=== PATIENT | female | born 1990 | race Caucasian/White ===

== ENCOUNTER 2019-06-04 13:29 | Emergency (ER) | payer OTHER ==
[~2019-06-04] VITALS: Ht 165.1 cm; Wt 98.1 kg
[2019-06-04 13:31] VITALS: BP 135/87
[2019-06-04] MEDS ORDERED: NACL 0.9% 1,000 ML IV ONE (14:15)
[2019-06-04 14:30] LABS: BASOPHILS # (AUTO) 0.1 K/uL (0.00-0.22); BASOPHILS % (AUTO) 0.9 % (0.0-2.0); EOSINOPHILS # (AUTO) 0.2 K/uL (0-0.4); EOSINOPHILS % (AUTO) 2.1 % (0.0-4.0); HEMATOCRIT 39.5 % (36-48); HEMOGLOBIN 13.2 g/dL (12.0-16.0); LYMPHOCYTES # (AUTO) 2.4 K/uL (2.5-16.5); LYMPHOCYTES % (AUTO) 26.5 % (20.5-51.1); MEAN CORPUSCULAR HEMOGLOBIN 30 pg (27-31); MEAN CORPUSCULAR HGB CONC 33 g/dL (33-37); MEAN CORPUSCULAR VOLUME 88.9 fL (80-94); MONOCYTES # (AUTO) 0.4 K/uL (0.8-1.0); MONOCYTES % (AUTO) 4.9 % (1.7-9.3); NEUTROPHILS % (AUTO) 65.6 % (42.2-75.2); PLATELET COUNT (AUTO) 272 K/uL (140-450); RED BLOOD CELL COUNT(AUTO) 4.44 MIL/uL (4.20-5.40); RED CELL DISTRIBUTION WIDTH 13.1 % (11.6-13.7); WHITE BLOOD COUNT (AUTO) 9.2 K/uL (4.8-10.8)
[2019-06-04] MEDS ORDERED: ONDANSETRON 4 MG/2 ML VIAL IVP ONE (14:30)
[2019-06-04 14:44] LABS: ALBUMIN 3.2 g/dL (3.4-5.0); ANION GAP 13.5 (8-16); CARBON DIOXIDE 28.1 mmol/L (21-32); CREATININE 0.6 mg/dL (0.6-1.3); POTASSIUM 3.6 mmol/L (3.5-5.1); TOTAL BILIRUBIN 0.2 mg/dL (0.0-1.0)
[2019-06-04 14:56] LABS: APPEARANCE,URINE CLEAR (CLEAR); BILIRUBIN,URINE NEGATIVE (NEGATIVE); BLOOD, URINE TRACE-I (NEGATIVE); COLOR,URINE YELLOW (YELLOW); LEUKOCYTE ESTERASE ,URINE NEGATIVE (NEGATIVE); NITRITE, URINE NEGATIVE (NEGATIVE); UGLUCOSE 3+ (NEGATIVE)
[2019-06-04 17:52] VITALS: BP 129/76
== END 2019-06-04 17:52 | disposition home or self-care (01) ==
LOC: MED 13:29
DX: O20.0 Threatened abortion (principal); O21.0 Mild hyperemesis gravidarum; E11.9 Type 2 diabetes mellitus without complications; Z90.49 Acquired absence of other specified parts of digestive tract; Z3A.01 Less than 8 weeks gestation of pregnancy
CPT/HCPCS: 36415; 76817; 80053; 81003; 84702; 85025; 86900; 86901; 96361; 96374; 99284; J2405; J7030; Q0092

== ENCOUNTER 2019-09-11 13:15 | Emergency (ER) | payer OTHER, SELFPAY ==
[~2019-09-11] VITALS: Ht 165.1 cm; Wt 99.8 kg
[2019-09-11 13:32] VITALS: BP 124/84
[2019-09-11 13:44] VITALS: BP 105/70
--- NOTE | 2019-09-11 14:18 | NUR ---
COVID SWAB DONE
[2019-09-11 14:25] VITALS: BP 105/70
--- NOTE | 2019-09-11 14:25 | NUR ---
Patient discharged with v/s stable. Written and verbal after care instructions given and explained. Patient alert, oriented and verbalized understanding of instructions. Ambulatory with steady gait. All questions addressed prior to discharge. ID band removed. Patient advised to follow up with PMD. Rx of aithromax given. Patient educated on indication of medication including possible reaction and side effects. Opportunity to ask questions provided and answered.
== END 2019-09-11 14:25 | disposition home or self-care (01) ==
LOC: EEVIPCON 13:15 → MED 13:15 → EDSTATUS 13:15 → MED 14:25
DX: R05 Cough (principal); O24.410 Gestational diabetes mellitus in pregnancy, diet controlled; Z20.828 Contact with and (suspected) exposure to other viral communicable diseases
CPT/HCPCS: 99283; U0003

== ENCOUNTER 2021-01-19 17:21 | Emergency (ER) | payer OTHER, SELFPAY ==
[~2021-01-19] VITALS: Ht 162.6 cm; Wt 91.7 kg
--- NOTE | 2021-01-19 17:31 | NUR ---
PATIENT AMBULATED TO BED 5
[2021-01-19 17:42] VITALS: BP 146/98
[2021-01-19] MEDS: NACL 0.9% 1,000 ML IV ONE (18:24)
--- NOTE | 2021-01-19 18:26 | NUR ---
30 BIB SELF WITH C/O DIARRHEA SINCE SUNDAY. PATIENT STATES SYMPTOMS BEGAN SUNDAY AND HAVE CONTINUED, STATING SHE HAS BEEN HAVING 7/10 ACHING/SHARP ABDOMINAL PAIN THAT WORSENS WHEN SHE EATS. STATES SHE HAS BEEN TAKING TYLENOL FOR THE PAIN WITH NO RELIEF, DENIES N/V. DENIES SOB, CP, FEVER OR CHILLS, STATES NO LOSS OF APPETITE.
[2021-01-19 18:32] LABS: APPEARANCE,URINE CLEAR (CLEAR); BILIRUBIN,URINE NEGATIVE (NEGATIVE); BLOOD, URINE 2+ (NEGATIVE); COLOR,URINE YELLOW (YELLOW); LEUKOCYTE ESTERASE ,URINE NEGATIVE (NEGATIVE); NITRITE, URINE NEGATIVE (NEGATIVE); UGLUCOSE 3+ (NEGATIVE)
[2021-01-19 18:35] LABS: BASOPHILS % (AUTO) 0.5 % (0.0-2.0); EOSINOPHILS # (AUTO) 0.2 K/uL (0-0.4); EOSINOPHILS % (AUTO) 2.8 % (0.0-4.0); HEMATOCRIT 38.7 % (36-48); HEMOGLOBIN 13.6 g/dL (12.0-16.0); LYMPHOCYTES # (AUTO) 3.4 K/uL (2.5-16.5); LYMPHOCYTES % (AUTO) 43.9 % (20.5-51.1); MEAN CORPUSCULAR HEMOGLOBIN 31 pg (27-31); MEAN CORPUSCULAR HGB CONC 35 g/dL (33-37); MEAN CORPUSCULAR VOLUME 87.1 fL (80-94); MONOCYTES # (AUTO) 0.3 K/uL (0.8-1.0); MONOCYTES % (AUTO) 4.1 % (1.7-9.3); NEUTROPHILS # (AUTO) 3.8 K/uL (1.8-7.7); NEUTROPHILS % (AUTO) 48.7 % (42.2-75.2); PLATELET COUNT (AUTO) 235 K/uL (140-450); RED BLOOD CELL COUNT(AUTO) 4.45 MIL/uL (4.20-5.40); RED CELL DISTRIBUTION WIDTH 12.8 % (11.6-13.7); WHITE BLOOD COUNT (AUTO) 7.8 K/uL (4.8-10.8)
[2021-01-19] MEDS: MORPHINE SULFATE 2 MG/ML SYR IVP ONE (18:39)
[2021-01-19] MEDS: ONDANSETRON 4 MG/2 ML VIAL IVP ONE (18:39)
[2021-01-19 18:42] LABS: RBC,URINE 11-20 (MOD) /HPF (0-5); WBC,URINE 0-5 /HPF (0-5)
[2021-01-19 18:52] LABS: ANION GAP 3.9 (8-16); CARBON DIOXIDE 37.8 mmol/L (21-32); CREATININE 0.9 mg/dL (0.6-1.3); POTASSIUM 3.7 mmol/L (3.5-5.1); TOTAL BILIRUBIN -0.4 mg/dL (0.0-1.0)
--- NOTE | 2021-01-19 19:17 | NUR ---
Pt report given to SANTOSH Richmond RN. Transfer of care at this time.
--- NOTE | 2021-01-19 19:20 | NUR ---
RECEIVED REPORT FROM DAY SHIFT NURSE, ASSUMED CARE. PATIENT OBSERVED IN BED RESTING COMFORTABLY. DENIED ANY PAIN, NAUSEA, VOMITING AT THE MOMENT. NO ACUTE DISTRESS NOTED. WILL CONTINUE TO MONITOR.
[2021-01-19] MEDS ORDERED: BISM262C52 PO (19:43)
[2021-01-19] MEDS ORDERED: LOPE-289 PO (19:43)
[2021-01-19 20:00] VITALS: BP 122/89
[2021-01-20 08:07] LABS: HEPATITIS A ANTIBODY IGM Negative (Negative); HEPATITIS B CORE AB TOTAL Negative (Negative); HEPATITIS B SURFACE ANTIBODY Non Reactive (.); HEPATITIS B SURFACE ANTIGEN Negative (Negative)
== END 2021-01-19 20:00 | disposition home or self-care (01) ==
LOC: MED 17:21
DX: B17.9 Acute viral hepatitis, unspecified (principal); K52.9 Noninfective gastroenteritis and colitis, unspecified; E11.9 Type 2 diabetes mellitus without complications; Z79.899 Other long term (current) drug therapy
CPT/HCPCS: 36415; 80053; 81001; 81025; 85025; 86704; 86706; 86708; 86709; 86803; 87340; 96361; 96374; 96375; 99284; J2270; J2405; J7030

== ENCOUNTER 2021-09-06 14:50 | Emergency (ER) | payer OTHER ==
[~2021-09-06] VITALS: Ht 162.6 cm; Wt 90.3 kg
[~2021-09-06 14:50] MED LIST: BISM262C52 PO; LOPE-289 PO
--- NOTE | 2021-09-06 15:07 | NUR ---
called in lobby and outside chairs, no answer
[2021-09-06 15:08] VITALS: BP 160/101
[2021-09-06] MEDS ORDERED: NACL 0.9% 1,000 ML IV ONE ×3 (15:30→18:00)
[2021-09-06 17:11] LABS: BASOPHILS # (AUTO) 0.1 K/uL (0.00-0.22); BASOPHILS % (AUTO) 0.9 % (0.0-2.0); EOSINOPHILS # (AUTO) 0.1 K/uL (0-0.4); EOSINOPHILS % (AUTO) 1.1 % (0.0-4.0); HEMATOCRIT 41.4 % (36-48); HEMOGLOBIN 14.5 g/dL (12.0-16.0); LYMPHOCYTES # (AUTO) 1.5 K/uL (2.5-16.5); LYMPHOCYTES % (AUTO) 16.7 % (20.5-51.1); MEAN CORPUSCULAR HEMOGLOBIN 31 pg (27-31); MEAN CORPUSCULAR HGB CONC 35 g/dL (33-37); MONOCYTES # (AUTO) 0.4 K/uL (0.8-1.0); NEUTROPHILS # (AUTO) 6.7 K/uL (1.8-7.7); NEUTROPHILS % (AUTO) 76.3 % (42.2-75.2); PLATELET COUNT (AUTO) 226 K/uL (140-450); RED BLOOD CELL COUNT(AUTO) 4.76 MIL/uL (4.20-5.40); RED CELL DISTRIBUTION WIDTH 12.7 % (11.6-13.7); WHITE BLOOD COUNT (AUTO) 8.8 K/uL (4.8-10.8)
[2021-09-06] MEDS ORDERED: INSULIN REGULAR, HUMAN 100 UNIT/ML VIAL SUBQ ONE (18:05)
--- NOTE | 2021-09-06 18:30 | NUR ---
PT AMBULATED TO ER BED 12
[2021-09-06] MEDS ORDERED: KETOROLAC 30 MG/ML VIAL IVP ONE (19:00)
--- NOTE | 2021-09-06 19:13 | NUR ---
31 Y/O FEMALE C/O LOWER BACK PAIN THAT COMES AND GOES AND RADIATES TO SPINE AND ABDOMEN (RLQ) ABD SOFT, FLAT, AND TENDER ON PALPATION. PAIN BEGAN THIS MORNING AT 0300. PT REPORTS TAKING IBUPROFEN WITH LITTLE TO NO RELIEF. PAIN DESCRIBED "PINCHING AND SIMILAR TO CONTRACTIONS". C/O DYSURIA, HEMATURA, URINARY DRIBBLING AND URGENCY. 1 EPISODE OF DIARRHEA THIS MORNING AT 0400. REPORTS UTI SYMPTOMS BEGINNING 3 DAYS AGO. PT IN GOWN. RESPIRATIONS EVEN AND UNLABORED. PMH: TYPE 2 DM MEDS: METFORMIN AND GLIPIZE COMPLIANT TOOK THIS MORNING AT 0730
--- NOTE | 2021-09-06 19:13 | NUR ---
report received from adam mora and adam palma. continuity of pt care at this time.
--- NOTE | 2021-09-06 19:14 | NUR ---
Report given MITCHEL Kiran. Transfer of care at this time.
--- NOTE | 2021-09-06 19:38 | NUR ---
Pt laying in bed locked in lowest position w x2 siderails up for pt safety. pt crying reports IV site hurts and back pain 10/10, +feeling like she is having a panic attack w chest feeling heavy, sob, and light headed. ERMD made aware of pt status. IV site removed, NS boluses paused. Pt tachycardic, otherwise vs w/in normal limits. pt connected to monitor, will continue to monitor.
--- NOTE | 2021-09-06 19:48 | NUR ---
new iv placed, bolus NS continued.
--- NOTE | 2021-09-06 19:51 | NUR ---
pt bs 291, per renetta Millard to hold off on humulin R administration. medication held.
[2021-09-06] MEDS ORDERED: LORazepam 2 MG/ML VIAL IVP ONE (19:55)
--- NOTE | 2021-09-06 19:58 | NUR ---
ativan 2mg vial pulled, 1mg admin 0.5ml wasted.
--- NOTE | 2021-09-06 20:04 | NUR ---
pt recently medicated for pain, and anxiety. 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 denies nausea. will continue to monitor.
[2021-09-06 20:16] LABS: APPEARANCE,URINE SL CLOUDY (CLEAR); BILIRUBIN,URINE NEGATIVE (NEGATIVE); BLOOD, URINE 3+ (NEGATIVE); COLOR,URINE AMBER (YELLOW); LEUKOCYTE ESTERASE ,URINE 1+ (NEGATIVE); NITRITE, URINE NEGATIVE (NEGATIVE); UGLUCOSE 3+ (NEGATIVE)
[2021-09-06 20:37] LABS: OTHER CASTS, URINE None Seen /LPF (None Seen); WBC,URINE 0-5 /HPF (0-5)
[2021-09-06] MEDS ORDERED: ACET-8386 PO (21:37)
[2021-09-06] MEDS ORDERED: CEPH-588 PO (21:37)
[2021-09-06] MEDS ORDERED: NAPR-54 PO (21:37)
[2021-09-06] MEDS ORDERED: cefTRIAXone 1,000 MG VIAL ONE (22:07)
--- NOTE | 2021-09-06 22:18 | NUR ---
Pt reports feeling better no ongoing diziness, anxiety, chest discomfort, or sob. pt reports back pain 09/11, requesting pain meduication. ermd made aware.
[2021-09-06 23:04] VITALS: BP 130/84
--- NOTE | 2021-09-06 23:04 | NUR ---
Patient discharged with v/s stable. Written and verbal after care instructions given and explained. Patient alert, oriented and verbalized understanding of instructions. Ambulatory with steady gait. All questions addressed prior to discharge. ID band removed. Patient advised to follow up with PMD. Rx of norco, keflex, naproxen given. Patient educated on indication of medication including possible reaction and side effects. Opportunity to ask questions provided and answered.
--- NOTE | 2021-09-09 18:58 | NUR ---
LATE ENTRY. RECEIVED POSITIVE URINE CULTURE. DISCREPANCY LOG SIGNED BY DR TATE. TREATMENT APPROPRIATE. FORM PLACED IN BINDER.
== END 2021-09-06 23:04 | disposition home or self-care (01) ==
LOC: MED 14:50
DX: E11.65 Type 2 diabetes mellitus with hyperglycemia (principal); R10.9 Unspecified abdominal pain; R30.0 Dysuria; R31.9 Hematuria, unspecified; Z79.4 Long term (current) use of insulin; Z79.899 Other long term (current) drug therapy
CPT/HCPCS: 36415; 74176; 81001; 81025; 85025; 87086; 88304; 93005; 96361; 96365; 96375; 99285; J0696; J1815; J1885; J2060

== ENCOUNTER 2022-03-18 11:52 | Emergency (ER) | payer MEDICAID, OTHER ==
[~2022-03-18] VITALS: Ht 162.6 cm; Wt 89.8 kg
[~2022-03-18 11:52] MED LIST changes: +ACET-8905 PO; +CEPH-588 PO; +NAPR-54 PO
[2022-03-18 12:32] VITALS: BP 151/97
--- NOTE | 2022-03-18 12:37 | NUR ---
FLU AND ELLY SWABS COLLECTED
--- NOTE | 2022-03-18 13:00 | NUR ---
31 Y/O FEMALE BIB SELF C/O HEADACHE, COUGH, SORE THROAT X3DAYS. STATES THAT SHE'S BEEN TAKING OTC MEDS W/O RELIEF. DENIES ANY CP, SOB NKA
[2022-03-18] MEDS ORDERED: IBUP-1842 PO (13:27)
[2022-03-18] MEDS ORDERED: BROM118S3 PO (13:27)
[2022-03-18 13:58] VITALS: BP 151/97
--- NOTE | 2022-03-18 13:59 | NUR ---
Patient discharged with v/s stable. Written and verbal after care instructions ABOUT UPPER RESPIRATORY INFECTION given and explained. Patient alert, oriented and verbalized understanding of instructions. Ambulatory with steady gait. All questions addressed prior to discharge. ID band removed. Patient advised to follow up with PMD. Rx of BROMFED, MOTRIN given. Patient educated on indication of medication including possible reaction and side effects. Opportunity to ask questions provided and answered.
== END 2022-03-18 13:59 | disposition home or self-care (01) ==
LOC: MED 11:52
DX: J06.9 Acute upper respiratory infection, unspecified (principal); Z20.822 Contact with and (suspected) exposure to COVID-19; H92.03 Otalgia, bilateral; E11.9 Type 2 diabetes mellitus without complications; Z79.4 Long term (current) use of insulin; Z79.899 Other long term (current) drug therapy; Z90.49 Acquired absence of other specified parts of digestive tract
CPT/HCPCS: 99283

== ENCOUNTER 2022-04-09 17:26 | Emergency (ER) | payer MEDICAID ==
[~2022-04-09] VITALS: Ht 162.6 cm; Wt 90.3 kg
[~2022-04-09 17:26] MED LIST changes: +BROM118S3 PO; +IBUP-1842 PO
[2022-04-09 17:59] VITALS: BP 204/137
--- NOTE | 2022-04-09 18:00 | NUR ---
31 y/o female bib self, c/o chest pain radiates to back, worsens with cough exertion for 1 week. states she was seen here 03/18/22 and tested negative for covid. states she was positive with covid 2 weeks ago. bs in triage was 552. a&ox4, ambulates with steady gait. pmh: dm2 nka
--- NOTE | 2022-04-09 18:09 | NUR ---
PT W/C ASSISTED TO BED 3.
[2022-04-09] MEDS ORDERED: KETOROLAC 15 MG/ML VIAL IVP ONE (18:20)
[2022-04-09] MEDS ORDERED: NACL 0.9% 1,000 ML IV ONE ×2 (18:20)
[2022-04-09 18:34] LABS: BASOPHILS % (AUTO) 0.4 % (0.0-2.0); EOSINOPHILS # (AUTO) 0.2 K/uL (0-0.4); EOSINOPHILS % (AUTO) 1.7 % (0.0-4.0); HEMATOCRIT 41.3 % (36-48); HEMOGLOBIN 19.1 g/dL (12.0-16.0); LYMPHOCYTES # (AUTO) 2.8 K/uL (2.5-16.5); LYMPHOCYTES % (AUTO) 27.2 % (20.5-51.1); MEAN CORPUSCULAR HEMOGLOBIN 41 pg (27-31); MEAN CORPUSCULAR HGB CONC 46 g/dL (33-37); MEAN CORPUSCULAR VOLUME 87.7 fL (80-94); MONOCYTES # (AUTO) 0.5 K/uL (0.8-1.0); MONOCYTES % (AUTO) 4.8 % (1.7-9.3); NEUTROPHILS # (AUTO) 6.7 K/uL (1.8-7.7); NEUTROPHILS % (AUTO) 65.9 % (42.2-75.2); PLATELET COUNT (AUTO) 242 K/uL (140-450); RED BLOOD CELL COUNT(AUTO) 4.71 MIL/uL (4.20-5.40); RED CELL DISTRIBUTION WIDTH 12.7 % (11.6-13.7); WHITE BLOOD COUNT (AUTO) 10.2 K/uL (4.8-10.8)
[2022-04-09 19:03] LABS: ACETONE, SERUM NEGATIVE (NEGATIVE)
[2022-04-09] MEDS ORDERED: KETOROLAC 15 MG/ML VIAL ONE (19:30)
[2022-04-09 19:50] LABS: APPEARANCE,URINE CLEAR (CLEAR); BILIRUBIN,URINE NEGATIVE (NEGATIVE); BLOOD, URINE TRACE-I (NEGATIVE); COLOR,URINE YELLOW (YELLOW); LEUKOCYTE ESTERASE ,URINE NEGATIVE (NEGATIVE); NITRITE, URINE NEGATIVE (NEGATIVE); UGLUCOSE >=1000 (NEGATIVE)
[2022-04-09 20:09] LABS: RBC,URINE 0-5 /HPF (0-5); WBC,URINE NONE SEEN /HPF (0-5)
--- NOTE | 2022-04-09 20:36 | NUR ---
PT BLOOD SUGAR IS 386
--- NOTE | 2022-04-09 21:00 | NUR ---
pt looks worried and anxious, she is concerned that her family member becuse of blood clot. I notifed the
[2022-04-09] MEDS ORDERED: LORazepam 0.5 MG TAB PO ONE (21:10)
--- NOTE | 2022-04-09 22:00 | NUR ---
Dr. conley came and talked to the patient to ensure patient know when she getting the the blood result.
--- NOTE | 2022-04-09 23:00 | NUR ---
PT IS COMPLAINING ABOUT THE PAIN IN CENTER OF THE STOMACH AND BACK PAIN. I HAVE NOTIFIED THE
[2022-04-10] MEDS ORDERED: DICYCLOMINE HCL LIQUID 20 MG, ALUMINUM HYD/MAG/SIMETHICONE 30 ML, LIDOCAINE VISCOUS 2% ... PO ONE ×3 (00:10)
[2022-04-10] MEDS ORDERED: DICYCLOMINE HCL LIQUID 10 MG/5 ML UDC ONE (00:28)
[2022-04-10] MEDS ORDERED: ALUMINUM HYD/MAG/SIMETHICONE 30 ML UDC ONE (00:28)
--- NOTE | 2022-04-10 02:23 | NUR ---
PT WANTED TO LEAVE
[2022-04-10 02:29] VITALS: BP 150/95
--- NOTE | 2022-04-10 02:31 | NUR ---
Patient does not wish to proceed with medical care recommended by ARMANI VERDUZCO. Patient given information related to possible complications, up to and including , which could occur as a result of leaving hospital at this time. Patient verbalizes understanding of risks involved leaving against medical advice. Patient has REFUSED TO SIGN AMA FORM. PT LEFT WITH HER BELONGING.
--- NOTE | 2022-04-11 08:17 | NUR ---
LATE ENTRY -- CONFIRMED WITH NURSE 2 NS INFUSIONS BOTH COMPLETED AT [facility] 04/09/22
[2022-04-11 15:30] LABS: POTASSIUM 3.6 mmol/L (3.5-5.1)
[2022-04-11 15:31] LABS: ANION GAP 32.6 (8-16)
[2022-04-11 15:35] LABS: CREATININE 0.7 mg/dL (0.6-1.3); TOTAL BILIRUBIN 0.2 mg/dL (0.0-1.0)
[2022-04-11 15:36] LABS: ALBUMIN 3.9 g/dL (3.4-5.0)
== END 2022-04-10 02:16 | disposition left against medical advice (07) ==
LOC: MED 17:26
DX: B34.9 Viral infection, unspecified (principal); E11.65 Type 2 diabetes mellitus with hyperglycemia; R10.13 Epigastric pain; Z20.822 Contact with and (suspected) exposure to COVID-19; Z90.49 Acquired absence of other specified parts of digestive tract; Z98.890 Other specified postprocedural states; Z79.899 Other long term (current) drug therapy; Z79.1 Long term (current) use of non-steroidal anti-inflammatories (NSAID); Z79.891 Long term (current) use of opiate analgesic; Z79.2 Long term (current) use of antibiotics
CPT/HCPCS: 36415; 71045; 80053; 81001; 81025; 82009; 83690; 84484; 85025; 87426; 87804; 93005; 96361; 96374; 99285; J1885; J7030; Q0092

== ENCOUNTER 2022-04-10 04:24 | Inpatient (IN) | payer MEDICAID ==
[~2022-04-10] VITALS: Ht 162.6 cm; Wt 90.3 kg
[2022-04-10 04:33] VITALS: BP 150/90
[2022-04-10] MEDS ORDERED: FAMOTIDINE 20 MG/2 ML VIAL IVP ONE (05:40)
[2022-04-10] MEDS ORDERED: NACL 0.9% 1,000 ML IV ONE (05:40)
[2022-04-10] MEDS ORDERED: ONDANSETRON 4 MG/2 ML VIAL IVP ONE (05:40)
[2022-04-10] MEDS ORDERED: MORPHINE SULFATE 4 MG/ML SYR IVP ONE (05:40)
[2022-04-10 06:27] LABS: BASOPHILS # (AUTO) 0.1 K/uL (0.00-0.22); BASOPHILS % (AUTO) 0.7 % (0.0-2.0); EOSINOPHILS # (AUTO) 0.1 K/uL (0-0.4); EOSINOPHILS % (AUTO) 1.1 % (0.0-4.0); LYMPHOCYTES # (AUTO) 2.3 K/uL (2.5-16.5); LYMPHOCYTES % (AUTO) 20.2 % (20.5-51.1); MONOCYTES # (AUTO) 0.5 K/uL (0.8-1.0); MONOCYTES % (AUTO) 4.8 % (1.7-9.3); NEUTROPHILS # (AUTO) 8.5 K/uL (1.8-7.7); NEUTROPHILS % (AUTO) 73.2 % (42.2-75.2); PLATELET COUNT (AUTO) 241 K/uL (140-450); RED CELL DISTRIBUTION WIDTH 12.8 % (11.6-13.7); WHITE BLOOD COUNT (AUTO) 11.6 K/uL (4.8-10.8)
[2022-04-10 09:49] LABS: APPEARANCE,URINE CLEAR (CLEAR); BILIRUBIN,URINE NEGATIVE (NEGATIVE); BLOOD, URINE LARGE (NEGATIVE); COLOR,URINE YELLOW (YELLOW); LEUKOCYTE ESTERASE ,URINE NEGATIVE (NEGATIVE); NITRITE, URINE NEGATIVE (NEGATIVE); UGLUCOSE >=1000 (NEGATIVE)
[2022-04-10 10:14] LABS: OTHER CASTS, URINE None Seen /LPF (None Seen); WBC,URINE 0-5 /HPF (0-5)
[2022-04-10 10:41] LABS: RED BLOOD CELL COUNT(AUTO) 5.04 MIL/uL (4.20-5.40)
[2022-04-10 10:42] LABS: HEMOGLOBIN 15.8 g/dL (12.0-16.0)
[2022-04-10 10:43] LABS: HEMATOCRIT 44.4 % (36-48); MEAN CORPUSCULAR VOLUME 88.2 fL (80-94)
[2022-04-10 10:44] LABS: MEAN CORPUSCULAR HEMOGLOBIN 31 pg (27-31)
[2022-04-10 10:45] LABS: MEAN CORPUSCULAR HGB CONC 36 g/dL (33-37)
[2022-04-10] MEDS ORDERED: cefTRIAXone 2,000 MG in DEXTROSE 5% 100 ML IV ONE (11:05)
[2022-04-10] MEDS ORDERED: cefTRIAXone 2,000 MG VIAL ONE (11:08)
[2022-04-10] MEDS ORDERED: DEXT 5% /NACL 0.9% 1,000 ML IV SCH (11:10)
[2022-04-10] MEDS ORDERED: DEXTROSE 50% 50 ML SYR IVP PRN (11:30)
[2022-04-10] MEDS: BLOOD GLUCOSE MONITORING 1 DEV DEV FS SCH ×3 (12:04→20:56)
[2022-04-10] MEDS: INSULIN LISPRO SLIDING SCALE 100 UNITS/ML VIAL SUBQ PRN ×3 (12:13→21:00)
[2022-04-10] MEDS ORDERED: LORazepam 2 MG/ML VIAL IVP PRN (12:20)
[2022-04-10] MEDS ORDERED: ZOLPIDEM 10 MG TAB PO PRN (12:20)
[2022-04-10] MEDS ORDERED: MAG SULF 2000 MG/WATER PREMIX 50 ML IV PRN (12:20)
[2022-04-10] MEDS ORDERED: DOCUSATE SODIUM 100 MG GELCAP PO PRN (12:20)
[2022-04-10] MEDS ORDERED: POTASSIUM CHLORIDE 10 MEQ TABER PO PRN (12:20)
[2022-04-10] MEDS: NACL 0.9% 1,000 ML IV SCH (14:24)
[2022-04-10 16:00] VITALS: BP 126/83
[2022-04-10] MEDS: METOCLOPRAMIDE 10 MG/2 ML INJ VIAL IVP SCH (16:48)
[2022-04-10] MEDS: gemfibroziL 600 MG TAB PO SCH (17:12)
[2022-04-10] MEDS: ACETAMINOPHEN 325 MG TAB PO PRN ×2 (17:13→20:42)
[2022-04-10 18:18] LABS: BARBITURATE, URINE NEGATIVE ng/ml (NEG <=200); BENZODIAZEPINE, URINE POSITIVE ng/mL (NEG <=200); CANNABINOID, URINE NEGATIVE ng/mL (NEG <=50); COCAINE, URINE NEGATIVE ng/mL (NEG <=300); OPIATE, URINE POSITIVE ng/mL (NEG <=2000); PHENCYCLIDINE SCREEN,URINE NEGATIVE ng/mL (NEG <=25)
[2022-04-10 20:00] VITALS: BP 123/81
[2022-04-11] VITALS: BP 106/64
[2022-04-11] MEDS: NACL 0.9% 1,000 ML IV SCH ×5 (00:15→20:48)
[2022-04-11 04:00] VITALS: BP 119/74
[2022-04-11] MEDS: ONDANSETRON 4 MG/2 ML VIAL IVP PRN ×2 (04:06→20:58)
[2022-04-11] MEDS: MORPHINE SULFATE 2 MG/ML SYR IVP PRN ×4 (04:13→20:58)
[2022-04-11 06:03] LABS: BASOPHILS % (AUTO) 0.4 % (0.0-2.0); EOSINOPHILS # (AUTO) 0.1 K/uL (0-0.4); EOSINOPHILS % (AUTO) 0.6 % (0.0-4.0); HEMATOCRIT 38.7 % (36-48); HEMOGLOBIN 13.4 g/dL (12.0-16.0); LYMPHOCYTES # (AUTO) 2.4 K/uL (2.5-16.5); MEAN CORPUSCULAR HEMOGLOBIN 31 pg (27-31); MEAN CORPUSCULAR HGB CONC 35 g/dL (33-37); MEAN CORPUSCULAR VOLUME 88.3 fL (80-94); MONOCYTES # (AUTO) 0.4 K/uL (0.8-1.0); MONOCYTES % (AUTO) 3.8 % (1.7-9.3); NEUTROPHILS # (AUTO) 8.6 K/uL (1.8-7.7); NEUTROPHILS % (AUTO) 74.2 % (42.2-75.2); PLATELET COUNT (AUTO) 220 K/uL (140-450); RED BLOOD CELL COUNT(AUTO) 4.38 MIL/uL (4.20-5.40); WHITE BLOOD COUNT (AUTO) 11.7 K/uL (4.8-10.8)
[2022-04-11 06:30] LABS: ANION GAP 18.4 (8-16); CARBON DIOXIDE 18.1 mmol/L (21-32); CREATININE 0.5 mg/dL (0.6-1.3); POTASSIUM 3.5 mmol/L (3.5-5.1)
[2022-04-11] MEDS: BLOOD GLUCOSE MONITORING 1 DEV DEV FS SCH ×4 (06:53→20:47)
[2022-04-11] MEDS: INSULIN LISPRO SLIDING SCALE 100 UNITS/ML VIAL SUBQ PRN ×4 (06:55→20:56)
[2022-04-11] MEDS: gemfibroziL 600 MG TAB PO SCH ×2 (06:57→17:18)
[2022-04-11 08:00] VITALS: BP 118/64
[2022-04-11] MEDS: METOCLOPRAMIDE 10 MG/2 ML INJ VIAL IVP SCH ×3 (08:52→17:18)
[2022-04-11 09:28] LABS: CHOL/HDL RATIO 5.5 (1-4.5); HDL CHOLESTEROL 55 mg/dL (40-60); TRIGLYCERIDES 991 mg/dL (30-150)
[2022-04-11 12:00] VITALS: BP 126/83
[2022-04-11] MEDS ORDERED: INSULIN LANTUS 100 UNITS/ML 10 ML VIAL SUBQ SCH (12:56)
[2022-04-11] MEDS: ACETAMINOPHEN 325 MG TAB PO PRN (20:57)
[2022-04-12] VITALS: BP 116/68
[2022-04-12] MEDS: NACL 0.9% 1,000 ML IV SCH ×3 (04:16→20:29)
[2022-04-12 06:00] LABS: BASOPHILS % (AUTO) 0.3 % (0.0-2.0); EOSINOPHILS # (AUTO) 0.2 K/uL (0-0.4); EOSINOPHILS % (AUTO) 1.7 % (0.0-4.0); HEMOGLOBIN 12.6 g/dL (12.0-16.0); LYMPHOCYTES # (AUTO) 1.1 K/uL (2.5-16.5); LYMPHOCYTES % (AUTO) 11.9 % (20.5-51.1); MEAN CORPUSCULAR HEMOGLOBIN 30 pg (27-31); MEAN CORPUSCULAR HGB CONC 34 g/dL (33-37); MEAN CORPUSCULAR VOLUME 88.5 fL (80-94); MONOCYTES # (AUTO) 0.5 K/uL (0.8-1.0); MONOCYTES % (AUTO) 5.6 % (1.7-9.3); NEUTROPHILS # (AUTO) 7.5 K/uL (1.8-7.7); NEUTROPHILS % (AUTO) 80.5 % (42.2-75.2); PLATELET COUNT (AUTO) 175 K/uL (140-450); RED BLOOD CELL COUNT(AUTO) 4.19 MIL/uL (4.20-5.40); RED CELL DISTRIBUTION WIDTH 13.5 % (11.6-13.7); WHITE BLOOD COUNT (AUTO) 9.3 K/uL (4.8-10.8)
[2022-04-12 06:09] LABS: ANION GAP 17.8 (8-16); CARBON DIOXIDE 16.7 mmol/L (21-32); CREATININE 0.4 mg/dL (0.6-1.3); POTASSIUM 3.5 mmol/L (3.5-5.1)
[2022-04-12] MEDS: gemfibroziL 600 MG TAB PO SCH ×2 (06:43→17:31)
[2022-04-12] MEDS: INSULIN LISPRO SLIDING SCALE 100 UNITS/ML VIAL SUBQ PRN ×4 (06:43→21:45)
[2022-04-12] MEDS: BLOOD GLUCOSE MONITORING 1 DEV DEV FS SCH ×4 (07:30→21:52)
[2022-04-12 08:00] VITALS: BP 104/68
[2022-04-12] MEDS: METOCLOPRAMIDE 10 MG/2 ML INJ VIAL IVP SCH ×3 (09:00→17:50)
[2022-04-12] MEDS ORDERED: INSULIN LANTUS 100 UNITS/ML 10 ML VIAL SUBQ SCH (09:00)
[2022-04-12 16:00] VITALS: BP 115/74
[2022-04-12] MEDS: GLIMEPIRIDE 2 MG TAB PO SCH (21:28)
[2022-04-12] MEDS: SODIUM BICARBONATE 8.4% PFS 50 MEQ/50 ML SYR IVP SCH (21:53)
[2022-04-13] VITALS: BP 110/68
[2022-04-13] MEDS ORDERED: guaiFENesin DM 200/20 MG-10 ML 10 ML UDC PO PRN (00:30)
[2022-04-13] MEDS: NACL 0.9% 1,000 ML IV SCH ×2 (03:09→09:49)
[2022-04-13 05:41] LABS: BASOPHILS % (AUTO) 0.5 % (0.0-2.0); EOSINOPHILS # (AUTO) 0.2 K/uL (0-0.4); EOSINOPHILS % (AUTO) 3.3 % (0.0-4.0); HEMATOCRIT 33.7 % (36-48); HEMOGLOBIN 11.3 g/dL (12.0-16.0); LYMPHOCYTES # (AUTO) 2.4 K/uL (2.5-16.5); LYMPHOCYTES % (AUTO) 34.8 % (20.5-51.1); MEAN CORPUSCULAR HEMOGLOBIN 30 pg (27-31); MEAN CORPUSCULAR HGB CONC 34 g/dL (33-37); MEAN CORPUSCULAR VOLUME 88.6 fL (80-94); MONOCYTES # (AUTO) 0.4 K/uL (0.8-1.0); MONOCYTES % (AUTO) 5.3 % (1.7-9.3); NEUTROPHILS # (AUTO) 3.8 K/uL (1.8-7.7); NEUTROPHILS % (AUTO) 56.1 % (42.2-75.2); PLATELET COUNT (AUTO) 148 K/uL (140-450); RED BLOOD CELL COUNT(AUTO) 3.81 MIL/uL (4.20-5.40); RED CELL DISTRIBUTION WIDTH 13.6 % (11.6-13.7); WHITE BLOOD COUNT (AUTO) 6.8 K/uL (4.8-10.8)
[2022-04-13 06:29] LABS: CARBON DIOXIDE 22.1 mmol/L (21-32); CREATININE 0.4 mg/dL (0.6-1.3); POTASSIUM 3.1 mmol/L (3.5-5.1)
[2022-04-13] MEDS: BLOOD GLUCOSE MONITORING 1 DEV DEV FS SCH ×2 (06:35→12:14)
[2022-04-13] MEDS: INSULIN LISPRO SLIDING SCALE 100 UNITS/ML VIAL SUBQ PRN ×2 (06:35→12:15)
[2022-04-13 06:37] LABS: CHOL/HDL RATIO 6.9 (1-4.5)
[2022-04-13] MEDS: gemfibroziL 600 MG TAB PO SCH (06:45)
[2022-04-13 08:00] VITALS: BP 103/72
[2022-04-13] MEDS ORDERED: INSULIN LANTUS 100 UNITS/ML 10 ML VIAL SUBQ SCH (09:00)
[2022-04-13] MEDS: ACETAMINOPHEN 325 MG TAB PO PRN ×2 (09:22)
[2022-04-13] MEDS: GLIMEPIRIDE 2 MG TAB PO SCH (09:25)
[2022-04-13] MEDS: SODIUM BICARBONATE 8.4% PFS 50 MEQ/50 ML SYR IVP SCH (09:49)
[2022-04-13] MEDS: METOCLOPRAMIDE 10 MG/2 ML INJ VIAL IVP SCH (09:49)
[2022-04-13] MEDS ORDERED: POTASSIUM CHL 20 MEQ/ 1/2 NS 1,000 ML IV SCH (11:15)
[2022-04-13] MEDS ORDERED: POTASSIUM CHLORIDE 20% 40 MEQ/15 ML UDC GT SCH (11:25)
[2022-04-13] MEDS ORDERED: GLIM2TAB PO (11:57)
[2022-04-13] MEDS ORDERED: GEMF-65 PO (11:57)
[2022-04-13] MEDS ORDERED: LANTUS SUBQ (11:57)
[2022-04-14] MEDS ORDERED: INSULIN LANTUS 100 UNITS/ML 10 ML VIAL SUBQ SCH (09:00)
== END 2022-04-13 13:51 | disposition home or self-care (01) | DRG 282 ==
LOC: MED 04:24 → MTU 11:12 → MMU 12:15
PROVIDERS: ADMIT Family Medicine; ATTEND Family Medicine
DX: K85.80 Other acute pancreatitis without necrosis or infection (principal); J96.00 Acute respiratory failure, unspecified whether with hypoxia or hypercapnia; R65.11 Systemic inflammatory response syndrome (SIRS) of non-infectious origin with acute organ dysfunction; E87.20 Acidosis, unspecified; N39.0 Urinary tract infection, site not specified; E78.00 Pure hypercholesterolemia, unspecified; E78.1 Pure hyperglyceridemia; E11.65 Type 2 diabetes mellitus with hyperglycemia; E66.9 Obesity, unspecified; Z20.822 Contact with and (suspected) exposure to COVID-19; K59.00 Constipation, unspecified; N20.0 Calculus of kidney; Z68.34 Body mass index [BMI] 34.0-34.9, adult; Y92.89 Other specified places as the place of occurrence of the external cause
CPT/HCPCS: 36415; 71045; 80048; 80053; 80305; 81001; 82550; 82803; 82948; 83605; 83690; 83735; 84478; 84484; 85025; 87040; 87070; 87081; 87086; 93005; 96361; 96365; 96375; 99285; J0696; J1815; J2060; J2270; J2405; J2765; J3475; J3490; J7060; Q0092

== ENCOUNTER 2022-05-07 13:35 | Emergency (ER) | payer MEDICAID ==
[~2022-05-07] VITALS: Ht 162.6 cm; Wt 88.5 kg
[~2022-05-07 13:35] MED LIST changes: +GEMF-65 PO; +GLIM2TAB PO; +LANTUS SUBQ
[2022-05-07 13:42] VITALS: BP 117/74
[2022-05-07] MEDS ORDERED: ONDANSETRON 4 MG/2 ML VIAL IVP ONE (14:25)
[2022-05-07] MEDS ORDERED: NACL 0.9% 1,000 ML IV ONE (14:25)
[2022-05-07] MEDS ORDERED: MORPHINE SULFATE 4 MG/ML SYR IVP ONE (14:25)
[2022-05-07 14:46] LABS: BASOPHILS % (AUTO) 0.2 % (0.0-2.0); EOSINOPHILS # (AUTO) 0.4 K/uL (0-0.4); HEMATOCRIT 40.9 % (36-48); HEMOGLOBIN 13.7 g/dL (12.0-16.0); LYMPHOCYTES # (AUTO) 2.5 K/uL (2.5-16.5); LYMPHOCYTES % (AUTO) 32.6 % (20.5-51.1); MEAN CORPUSCULAR HEMOGLOBIN 30 pg (27-31); MEAN CORPUSCULAR HGB CONC 34 g/dL (33-37); MEAN CORPUSCULAR VOLUME 87.6 fL (80-94); MONOCYTES # (AUTO) 0.3 K/uL (0.8-1.0); MONOCYTES % (AUTO) 4.4 % (1.7-9.3); NEUTROPHILS # (AUTO) 4.5 K/uL (1.8-7.7); NEUTROPHILS % (AUTO) 57.8 % (42.2-75.2); PLATELET COUNT (AUTO) 271 K/uL (140-450); RED BLOOD CELL COUNT(AUTO) 4.67 MIL/uL (4.20-5.40); RED CELL DISTRIBUTION WIDTH 12.9 % (11.6-13.7); WHITE BLOOD COUNT (AUTO) 7.8 K/uL (4.8-10.8)
[2022-05-07 14:49] LABS: APPEARANCE,URINE CLEAR (CLEAR); BILIRUBIN,URINE NEGATIVE (NEGATIVE); BLOOD, URINE 2+ (NEGATIVE); COLOR,URINE YELLOW (YELLOW); LEUKOCYTE ESTERASE ,URINE NEGATIVE (NEGATIVE); NITRITE, URINE NEGATIVE (NEGATIVE); UGLUCOSE 3+ (NEGATIVE)
[2022-05-07 15:02] LABS: ALBUMIN 4.1 g/dL (3.4-5.0); ANION GAP 13.4 (8-16); CARBON DIOXIDE 25.2 mmol/L (21-32); CREATININE 0.6 mg/dL (0.6-1.3); POTASSIUM 3.6 mmol/L (3.5-5.1); TOTAL BILIRUBIN 0.3 mg/dL (0.0-1.0)
[2022-05-07 15:32] LABS: RBC,URINE 0-5 /HPF (0-5); WBC,URINE 0-5 /HPF (0-5); YEAST,URINE Few /HPF (None Seen)
[2022-05-07] MEDS ORDERED: FLUCONAZOLE 100 MG TAB PO ONE (15:45)
[2022-05-07] MEDS ORDERED: ACET-5629 PO (15:48)
[2022-05-07] MEDS ORDERED: OMEP20EC11 PO (15:48)
[2022-05-07] MEDS ORDERED: SUCR1TAB35 PO (15:48)
[2022-05-07] MEDS ORDERED: BEN10 PO (15:48)
[2022-05-07 16:18] VITALS: BP 121/83
== END 2022-05-07 16:18 | disposition home or self-care (01) ==
LOC: MED 13:35
DX: K29.70 Gastritis, unspecified, without bleeding (principal); E11.65 Type 2 diabetes mellitus with hyperglycemia; E03.9 Hypothyroidism, unspecified; E78.00 Pure hypercholesterolemia, unspecified; Z79.4 Long term (current) use of insulin; Z79.899 Other long term (current) drug therapy
CPT/HCPCS: 36415; 80053; 81001; 81025; 82150; 82948; 83690; 85025; 87086; 96361; 96374; 96375; 99284; J2270; J2405; J7030

== ENCOUNTER 2022-10-24 16:59 | Emergency (ER) | payer MEDICAID, OTHER ==
[~2022-10-24] VITALS: Ht 162.6 cm; Wt 85.0 kg
[~2022-10-24 16:59] MED LIST changes: +ACET-5629 PO; -ACET-8905 PO; +BEN10 PO; -BISM262C52 PO; -BROM118S3 PO; -CEPH-588 PO; -IBUP-1842 PO; -LOPE-289 PO; -NAPR-54 PO; +OMEP20EC11 PO; +SUCR1TAB35 PO
[2022-10-24 17:08] VITALS: BP 106/73; PULSE 138; RESP 20; TEMP 98.4; O2SAT 98
[2022-10-24 18:31] LABS: APPEARANCE,URINE CLEAR (CLEAR); BILIRUBIN,URINE NEGATIVE (NEGATIVE); BLOOD, URINE NEGATIVE (NEGATIVE); COLOR,URINE YELLOW (YELLOW); LEUKOCYTE ESTERASE ,URINE NEGATIVE (NEGATIVE); NITRITE, URINE NEGATIVE (NEGATIVE); PROTEIN,URINE NEGATIVE (NEGATIVE); UGLUCOSE 3+ (NEGATIVE); UROBILINOGEN,URINE 0.2 EU/dL (0.2 - 1)
[2022-10-24] MEDS ORDERED: cefTRIAXone 500 MG in LIDOCAINE MPF 1% 1 ML IM ONE ×2 (18:35→19:40)
[2022-10-24] MEDS ORDERED: KETOROLAC 30 MG/ML VIAL IM ONE (18:35)
[2022-10-24] MEDS ORDERED: cefTRIAXone 1,000 MG in LIDOCAINE MPF 1% 2.1 ML IM ONE (18:40)
[2022-10-24] MEDS ORDERED: METR1KIT VG (20:26)
[2022-10-24] MEDS ORDERED: IBUP-2213 PO (20:26)
[2022-10-24] MEDS ORDERED: DOXY-487 PO (20:26)
[2022-10-24] MEDS ORDERED: KETOROLAC 30 MG/ML VIAL ONE (20:58)
[2022-10-24] MEDS ORDERED: cefTRIAXone 1,000 MG VIAL ONE (20:58)
[2022-10-24] MEDS ORDERED: LIDOCAINE MPF 1% 5 ML ONE (20:58)
[2022-10-24 22:20] VITALS: BP 112/60; PULSE 110; RESP 16; TEMP 98; O2SAT 95
== END 2022-10-24 22:20 | disposition home or self-care (01) ==
LOC: MED 16:59
DX: A74.9 Chlamydial infection, unspecified (principal); E11.9 Type 2 diabetes mellitus without complications; E03.9 Hypothyroidism, unspecified; Z79.4 Long term (current) use of insulin; Z79.899 Other long term (current) drug therapy
CPT/HCPCS: 81003; 81025; 87086; 87210; 87491; 96372; 99285; J0696; J1885; J2001